=== PATIENT | male | born 1970 | race African-American/Black ===

== ENCOUNTER 2019-06-24 12:04 | Emergency (ER) | payer BC ==
--- NOTE | 2019-06-24 12:27 | ED ---
Headache - HPI Summary HPI Summary: This patient is a 49 year old F presenting to [facility] accompanied by with a chief complaint of MAYA with associated weakness since 06/21/19. Patient states that he went to [facility] in [place] where they preformed an EKG after reviewing the results he was recommended to come to the ED for a second EKG. The patient rates the pain 0/10 in severity. Symptoms aggravated by nothing. Symptoms alleviated by nothing. Patient reports MAYA, body aches, weakness, fluid in ears. Patient denies N/V/D, fever, diaphoresis, chills, nasal discharge, urinary symptoms and joint pain. Allergies Allergy/AdvReac Type Severity Reaction Status Date / Time ibuprofen Allergy Swelling Verified 06/24/19 12:12 Home Medications Medication Instructions Recorded Confirmed Type Acetaminophen TAB* [Tylenol TAB*] 975 mg PO Q6H PRN 06/24/19 06/24/19 History Cetirizine* [ZyrTEC 10 MG TAB*] 10 mg PO DAILY 06/24/19 06/24/19 History Ibuprofen TAB* [Advil TAB*] 200 mg PO Q6H PRN 06/24/19 06/24/19 History Pseudoephedrine TAB* [Sudafed TAB*] 30 mg PO Q6H PRN 06/24/19 06/24/19 History - History Of Current Complaint Chief Complaint: EDDysrhythmPalp Stated Complaint: ABNORMAL EKG Time Seen by Provider: 06/24/19 12:14 Hx Obtained From: Patient - , 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 Last Known Well Date: 06/20/19 Onset/Duration: Sudden Onset Initially Headache Was: Mild Currently Pain Is: Current Pain Scale(0-10)= - 0 Timing: Days - 06/21/19 Character: Pressure Location of Headache: Diffuse Aggravating Factor: Nothing Allevating Factors: Nothing Associated Signs And Symptoms: Other (Noted In Comments) - Allergies/Home Medications Allergies/Adverse Reactions: Allergies Allergy/AdvReac Type Severity Reaction Status Date / Time ibuprofen Allergy Swelling Verified 06/24/19 12:12 Home Medications: Home Medications Acetaminophen TAB* [Tylenol TAB*] 975 mg PO Q6H PRN 06/24/19 [History Confirmed 06/24/19] Cetirizine* [ZyrTEC 10 MG TAB*] 10 mg PO DAILY 06/24/19 [History Confirmed 06/24] Ibuprofen TAB* [Advil TAB*] 200 mg PO Q6H PRN 06/24/19 [History Confirmed ] Pseudoephedrine TAB* [Sudafed TAB*] 30 mg PO Q6H PRN 06/24/19 [History Confirmed 06/24/19] PMH/Surg Hx/FS Hx/Imm Hx Endocrine/Hematology History: Denies: Hx Diabetes Cardiovascular History: Denies: Hx Coronary Artery Disease, Hx Hypertension Sensory History: Denies: Hx Legally Blind, Hx Deafness Opthamlomology History: Denies: Hx Legally Blind EENT History: Denies: Hx Deafness Infectious Disease History: No Infectious Disease History: Denies: Traveled Outside the [place] in Last 30 Days - Family History Known Family History: Negative: Hypertension - Social History Hx Substance Use: Yes Substance Use Type: Reports: Marijuana Review of Systems Negative: Fever, Chills, Skin Diaphoresis Negative: Nasal Discharge Genitourinary: Negative Negative: Other - negative joint pain Positive: Headache All Other Systems Reviewed And Are Negative: Yes Physical Exam - Summary Physical Exam Summary: Constitutional: Well-developed, Well-nourished, Alert. (-) Distressed Skin: Warm, Dry HENT: Normocephalic; Atraumatic Eyes: Conjunctiva normal Neck: Musculoskeletal ROM normal neck. (-) JVD, (-) Stridor, (-) Tracheal deviation Cardio: Rhythm regular, rate normal, Heart sounds normal; Intact distal pulses; The pedal pulses are 2+ and symmetric. Radial pulses are 2+ and symmetric. (-) Murmur Pulmonary/Chest wall: Effort normal. (-) Respiratory distress, (-) Wheezes, (-) Rales Abd: Soft. (-) Tenderness, (-) Distension, (-) Guarding, (-) Rebound Musculoskeletal: (-) Edema Lymph: (-) Cervical adenopathy Neuro: Alert, Oriented x3, Strength normal, Cranial nerves II-XII are grossly intact. (-) Dysmetria, (-) Nystagmus, (-) Ataxia by finger to nose testing, (-) Sensory deficit. Psych: Mood and affect Normal Triage Information Reviewed: Yes Vital Signs On Initial Exam: Initial Vitals Temp Pulse Resp BP Pulse Ox 97.2 F 68 18 146/83 100 09/26/19 12:12 06/24/19 12:12 06/24/19 12:12 06/24/19 12:12 06/24/19 12:12 Vital Signs Reviewed: Yes Diagnostics - Vital Signs Vital Signs Temp Pulse Resp BP Pulse Ox 06/24/19 12:12 97.2 F 68 18 146/83 100 - Laboratory Result Diagrams: 06/24/19 12:29 06/24/19 12:29 Lab Statement: Any lab studies that have been ordered have been reviewed, and results considered in the medical decision making process. - CT Brain CT CT Interpretation Completed By: Radiologist Summary of CT Findings: Brain CT reveals, per radiologist, IMPRESSION: No evidence of intracranial mass or hemorrhage is noted. ED Physician has reviewed this report. - EKG 1207 Cardiac Rate: NL - 67 bpm EKG Rhythm: Sinus Rhythm ST Segment: Normal Ectopy: None EKG Comparison: Other - no prior comparison Summary of EKG Findings: EKG reveals SR and left ventricular hypertrophy. Re-Evaluation - Re-Evaluation First Eval Re-Evaluation Time: 16:00 Change: Improved Comment: Patient states that he has no complaints and blood pressure is normal. Headache Course/Dx - Course Course Of Treatment: This patient is a 49 year old F [facility] [place] by with a chief complaint of MAYA with associated weakness since 06/21/19. Brain CT reveals, per radiologist, IMPRESSION: No evidence of intracranial mass or hemorrhage is noted. ED Physician has reviewed this report. EKG reveals SR and left ventricular hypertrophy. Patient states that he ate a marijuana ediible friday night and patient states symptoms begane the next day. Test results with no significant abnormalities except for WBC 3.3. Patient will be discharged home and follow up with [facility]. Patient is agreeable with this plan. - Diagnoses Provider Diagnoses: Adverse effect of cannabis, Intermittent hypertension Discharge ED - Sign-Out/Discharge Documenting (check all that apply): Patient Departure - discharge Patient Received Moderate/Deep Sedation with Procedure: No - Discharge Plan Condition: Stable Disposition: HOME Patient Education Materials: Hypertension (ED) Referrals: Care [facility] [Outside] - 2 Days Additional Instructions: PLEASE FOLLOW UP WITH [facility] IN 2 TO 3 DAYS. PLEASE REMEMBER TO KEEP A LOG OF YOUR BLOOD PRESSURE AND BE SURE TO BRING THAT WITH YOU TO YOUR DOCTOR APPOINTMENT. PLEASE MAKE SURE YOU AVOID SUDAFED. PLEASE RETURN TO THE EMERGENCY DEPARTMENT FOR CHANGING OR WORSENING SYMPTOMS - Attestation Statements Document Initiated by Omaribe: Yes Documenting Scribe: Zulay Blanca Provider For Whom Flores is Documenting (Include Credential): Dr. Gamaliel Calvert MD Scribe Attestation: IZulay , scribed for Dr. Gamaliel Calvert MD on 06/24/19 at 1752. Status of Scribe Document: Ready
[2019-06-24 12:53] LABS: ABS Eosinophils 0.1 10^3/ul (0-0.6); ABS Lymphocytes 1.4 10^3/ul (1.0-4.8); ABS Monocytes 0.2 10^3/ul (0-0.8); ABS Neutrophils 1.6 10^3/ul (1.5-7.7); Eosinophil % 1.9 %; Hematocrit 43 % (42-52); Hemoglobin 14.5 g/dL (14.0-18.0); Lymphocyte % 42.3 %; Mean Corpuscular HGB Conc 34 g/dL (31-36); Mean Corpuscular Hemoglobin 30 pg (27-31); Mean Corpuscular Volume 90 fL (80-94); Mean Platelet Volume 8.3 fL (7.4-10.4); Nucleated Red Blood Cells % 0.1; Platelet Count 191 10^3/uL (150-450); Red Blood Count 4.77 10^6 /uL (4.18-5.48); Red Cell Distribution Width 13 % (10-15); White Blood Count 3.3 10^3/uL (3.5-10.8)
[2019-06-24 12:56] LABS: INR 1.02 (0.82-1.09)
[2019-06-24 13:12] LABS: Albumin 4.8 g/dL (3.2-5.2); Albumin/Globulin Ratio 1.7 (1-3); BUN/Creatinine Ratio 12.8 (8-20); Calcium 9.4 mg/dL (8.6-10.3); EGFR African American 86.6 (>60); EGFR Non-African American 71.6 (>60); Globulin 2.9 g/dL (2-4); Total Bilirubin 0.5 mg/dL (0.2-1.0); Total Protein 7.7 g/dL (6.4-8.9)
[2019-06-24 13:42] LABS: Magnesium 2.1 mg/dL (1.9-2.7)
[2019-06-24 13:48] LABS: C Reactive Protein < 1.00 mg/L (<8.01)
[2019-06-24 17:24] VITALS: BP 141/73
== END 2019-06-24 16:30 | disposition home or self-care (01) ==
LOC: ED 12:04
DX: I10 Essential (primary) hypertension (principal); T40.7X5A Adverse effect of cannabis (derivatives), initial encounter; Y92.9 Unspecified place or not applicable; Z79.899 Other long term (current) drug therapy; Z88.6 Allergy status to analgesic agent
CPT/HCPCS: 36415; 70450; 80053; 83605; 83735; 84439; 84443; 84484; 85025; 85610; 86140; 86618; 93005; 99282

== ENCOUNTER 2019-12-13 17:22 | Emergency (ER) | payer BC ==
--- OUTSIDE RECORDS SUMMARY | 2019-12-13 17:33 | XMS REPORT | Summary of Care ---
:1970 Author Organization [facility] Address [address] [address] Care Team Providers Name Role Phone Rossana Beard MD Primary Care Provider Reason for Visit Reason Comments Shoulder Pain Encounter Details Date Type Department Care Team Description 10/27/2019 Office Visit [facility] - Haley Aiken, PT Chronic right [place] [facility] [address] [facility] [address] (Primary Dx) [address] [place] [address] [address] [phone] [place] [phone] Allergies Active Allergy Reactions Severity Noted Date Comments Bee Sting Dermatologic Reaction High 01/13/2008 (HORNETS) Nsaids Swelling High 2009 Angioedema of lips documented as of this encounter (statuses as of 10/27/2019) Medications Medication Sig Dispensed Refills Start Date End Date Status cetirizine (ZYRTEC) 10 Take 1 Tab by 30 Tab 0 09/13/2013 Active MG Oral Tab mouth DAILY NEEDED. diphenhydrAMINE Take 1 Cap by 56 Cap 0 09/13/2013 Active (BENADRYL) 25 MG Oral mouth EVERY FOUR Cap HOURS NEEDED (allergies). fluticasone (FLONASE) [place] 2 Sprays in 1 Bottle 3 09/13/2013 Active 50 MCG/ACT Nasal nose DAILY SuspensionIndications: NEEDED. Allergic rhinitis EPINEPHrine (EPIPEN) 1 Syringe by 2 Device 0 01/18/2014 Active 0.3 MG/0.3ML Injection Injection route Device NEEDED (bee/hornet sting). amoxicillin-clavulanic Take 1 Tab by 20 Tab 0 10/14/2019 Active acid (AUGMENTIN 875 MG) mouth TWICE 875-125 MG Oral Tab DAILY. documented as of this encounter (statuses as of 10/27/2019) Active Problems Problem Noted Date Multiple nevi 09/13/2013 Overview: Brother, mother with same Bee sting-induced anaphylaxis 2009 Angioedema of lips 2009 ADVERSE REACTION TO NON-STEROIDAL ANTI-INFLAMMATORY DRUG (NSAID) 2009 documented as of this encounter (statuses as of 10/27/2019) Immunizations Name Administration Dates Next Due Influenza (IM) Preservative Free 06/10/2014 Influenza (IM) W/Pres 10/08/2019 TDAP Vaccine 02/11/2013 documented as of this encounter Social History Tobacco Use Types Packs/Day Years Used Date Never Smoker Smokeless Tobacco: Never Used Alcohol Use Drinks/Week oz/Week Comments Yes 7 Standard drinks or equivalent 7.0 limited Sex Assigned at Date Recorded Not on file Job Start Date Occupation Industry Not on file Not on file Not on file Travel History Travel Start Travel End No recent travel history available. documented as of this encounter Last Filed Vital Signs Not on filedocumented in this encounter Progress Notes Haley Aiken, PT - 10/27/2019 8:00 AM EST [facility] Initial Evaluation [facility] [address] [place] [id number] Patient: Ciaran Greene : 1970 Date of Service: 10/27/2019 Referring Physician: Avery Pool Primary Diagnosis: ICD-9-CM ICD-10-CM 1. Chronic right shoulder pain 719.41 M25.511 338.29 G89.29 Time In: 0800 Time Out: Subjective: He is a 49-y.o.-year-old male who presents for outpatient physical therapy with a chiefcomplaint of right shoulder pain that started 6-8 months ago. He believes it really started to get worse from starting a push-up challenge. Pain is improving. Pain went into the neck when bad and felt like neck took longer to go away. Hasnt done any working out in 2 weeks now. No prior shoulder injuries. Left hand dominant. 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 : No FOTO Data FOTO Intake Completed: Yes Intake FS Score: 74 Predicted FS Score: 77 Objective: Past Medical History: Diagnosis Date Bee sting reaction 2004 presumed allergy, epi pen PRN (never used) Mood disorder (HCC) mariaelena Nephrolithiasis 2011 Past Surgical History: Procedure Laterality Date DENTAL OPERATION NEC 1 wisdome tooth removed VASECTOMY Current Outpatient Medications: amoxicillin-clavulanic acid (AUGMENTIN 875 MG) 875-125 MG Oral Tab, Take 1 Tab by mouth TWICE DAILY., Disp: 20 Tab, Rfl: 0 cetirizine (ZYRTEC) 10 MG Oral Tab, Take 1 Tab by mouth DAILY NEEDED. , Disp: 30 Tab, Rfl:0 diphenhydrAMINE (BENADRYL) 25 MG Oral Cap, Take 1 Cap by mouth EVERY FOUR HOURS NEEDED (allergies)., Disp: 56 Cap, Rfl: 0 EPINEPHrine (EPIPEN) 0.3 MG/0.3ML Injection Device, 1 Syringe by Injection route NEEDED (bee/hornet sting)., Disp: 2 Device, Rfl: 0 fluticasone (FLONASE) 50 MCG/ACT Nasal Suspension, [place] 2 Sprays in nose DAILY NEEDED., Disp: 1 Bottle, Rfl: 3 Allergies Allergen Reactions Bee Sting Dermatologic Reaction (HORNETS) Nsaids Swelling Angioedema of lips Posture: Shoulders elevated bilaterally. Right scapula further from the spine Palpation: Trigger points in the upper traps, levator, posterior RTC and pecs AROM: Initial Eval Right Shoulder Left Shoulder Current Right Shoulder Left Shoulder Flexion 150 degrees 160 degrees Flexion degrees degrees Abduction WNL with painful arc degrees WNL degrees Abduction degrees degrees Ext. Rotation WNL degrees WNL degrees Ext. Rotation degrees degrees Int. Rotation ([place]) T7 T7 Int. Rotation ([place]) degrees degrees PROM: Initial Eval Right Shoulder Left Shoulder Current Right Shoulder Left Shoulder Flexion 160 degrees 160 degrees Flexion degrees degrees Abduction WNL degrees WNL degrees Abduction degrees degrees Ext. Rotation WNL degrees- pec stretch noted WNL degrees Ext Rotation degrees degrees Int. Rotation WNL WNL Int. Rotation Strength: Initial Eval Right Shoulder Left Shoulder Current Right Shoulder Left Shoulder Flexion 4+/5* 5/5 Flexion /5 /5 Abduction 4+*/5 5/5 Abduction /5 /5 Ext. Rotation 4-*/5 5/5 Ext. Rotation /5 Int. Rotation 5/5 5/5 Int. Rotation /5 /5 Bicep: 4+/5* Scaption: 4+/5* Joint Mobility Assessment: normal Special Tests: Seay Landon: Positive Emtpy Can: negative but compensates with UT Lift off: negative Cross over adduction: negative Drop Arm: negative Right cervical rotation limited Lateral flexion to left, stretch felt on the right Plan of Care Plan of Care Start Date: 10/27/19 Plan of Care Expiration Date: 01/26/20 Prior Function Comment: independent Current Function Comment: unable to work out, modifies sleeping, lifting, reaching Rehabilitative Prognosis: Good Planned Intervention(s): PT Eval Low Complexity (90326);Therapeutic Exercise ( Timed) (46515);Ultrasound (Timed) (73015);Manual Therapy (Timed) (07055);Moist Hot Pack (65008);Cold Pack (46855) Frequency of Treatments: 1 time weekly Duration of Treatments: 3 months History Components: Moderate (1-2 personal factors and/or comorbidities) Examination of Body Systems/Components: Low (Addressing 1-2 elements) Clinical Presentation: Stable - unchanging or predictable (Low) Clinical Decision Making (complexity): Low Treatment Number: 1 Total Time of Evaluation: 25 Outcome Tools Used: FOTO Assessment: Patient presents with right shoulder pain that is worse with working out and sleeping on the right side. Displays excessive upper trap activation with scap retraction and pec tightness noted bilaterally. Positive painful arc with abduction range and weakness in ER and shoulder elevation. Findings suggest bicep and RTC impingement. Would benefit from therapy to improve scapular dyskinesia, posture, RTC and scapular stabilizer strength, pec and UT length to tolerate all ADL's including sleeping and overhead activity. Was Physical Therapy treatment performed at this visit? Yes: Interventions: FOTO Data FOTO Intake Completed: Yes Intake FS Score: 74 Predicted FS Score: 77 Therapeutic Exercises (32298) Patient Education/Home Exercise Program: HEP given Number of Exercises?: 5 Total Minutes (all Therapeutic Exercise): 25 Exercise #1 Exercise Name: rows Reason for Exercise: Strengthening Location/Body Area: Shoulder Sets/Reps: 10 Resistance: green Exercise #2 Exercise Name: ER Reason for Exercise: Strengthening Location/Body Area: Shoulder Sets/Reps: 10 Resistance: red Exercise #3 Exercise Name: foam roller Reason for Exercise: Flexibility Location/Body Area: Shoulder Sets/Reps: 5 minutes Exercise #4 Exercise Name: UT and levator stretch Reason for Exercise: Flexibility Location/Body Area: Shoulder;Cervical Spine Sets/Reps: 3x30 seconds Exercise #5 Exercise Name: prone i Reason for Exercise: Strengthening Location/Body Area: Shoulder Sets/Reps: 10 Plan for Next Visit: Continue per POC. DTM to RTC and pecs. Add chest, serratus push up, serratus wall slide, if no increase in symptoms Evaluation Complexity Assessment: History Components: Moderate (1-2 personal factors and/or comorbidities) Examination of Body Systems/Components: Low (Addressing 1-2 elements) Clinical Presentation: Stable - unchanging or predictable (Low) Clinical Decision Making (complexity): Low Treatment Number: 1 Total Time of Evaluation: 25 Total Number of Timed Code Treatment Minutes: 25 Author: Haley Aiken PT 10/27/2019 09:46 documented in this encounter Plan of Treatment Date Type Specialty Care Team Description 11/10/2019 Office Visit Physical Therapy Haley Aiken, PT [address] [place] [address] [phone] 11/24/2019 Office Visit Physical Therapy Haley Aiken, PT [address] [place] [address] [phone] Health Maintenance Due Date Last Done Comments Colonoscopy 2019 ZOSTER IMMUNIZATION SERIES 2019 (1 of 2) DIABETES SCREENING 01/14/2020 01/13/2019, 01/15/2017, 02/11/2013 DEPRESSION SCREENING 10/14/2020 10/14/2019 DTaP/Tdap/Td Vaccines (2 - 02/11/2023 02/11/2013 Tdap) LIPID DISORDER SCREENING 01/14/2024 01/13/2019, 01/15/2017, 02/11/2013, Additional history exists INFLUENZA VACCINE Completed 10/08/2019, 06/10/2014 HEPATITIS A IMMUNIZATION Aged Out No longer eligible SERIES based on patient's age to complete this topic HPV IMMUNIZATION SERIES Aged Out No longer eligible based on patient's age to complete this topic MENINGOCOCCAL VACCINE IMM Aged Out No longer eligible based on patient's age to complete this topic PNEUMOCOCCAL 0-64 YRS Aged Out No longer eligible based on patient's age to complete this topic documented as of this encounter Results Not on filedocumented in this encounter Visit Diagnoses Diagnosis Chronic right shoulder pain Pain in joint, shoulder region documented in this encounter Insurance Payer Benefit Plan / Subscriber ID Effective Dates Phone Address Type Group [employer] xxxxxxxxxxxx 2014-Present [employer] (Home) [facility] [phone] [place], [place] (Work) [phone] documented as of this encounter
--- OUTSIDE RECORDS SUMMARY | 2019-12-13 17:33 | XMS REPORT | Summary of Care ---
:1970 Author Organization [facility] Address [address] [address] Care Team Providers Name Role Phone Rossana Beard MD Primary Care Provider Reason for Visit Reason Comments Shoulder Pain Encounter Details Date Type Department Care Team Description 11/10/2019 Office Visit [facility] - Haley Aiken, PT Chronic right [place] Physical [address] [facility] [address] (Primary Dx) [address] [place] [address] [address] [phone] [place] [phone] Allergies Active Allergy Reactions Severity Noted Date Comments Bee Sting Dermatologic Reaction High 01/13/2008 (HORNETS) Nsaids Swelling High 2009 Angioedema of lips documented as of this encounter (statuses as of 11/10/2019) Medications Medication Sig Dispensed Refills Start Date End Date Status cetirizine (ZYRTEC) 10 Take 1 Tab by 30 Tab 0 09/13/2013 Active MG Oral Tab mouth DAILY NEEDED. diphenhydrAMINE Take 1 Cap by 56 Cap 0 09/13/2013 Active (BENADRYL) 25 MG Oral mouth EVERY FOUR Cap HOURS NEEDED (allergies). fluticasone (FLONASE) [place] 2 Sprays in 1 Bottle 3 09/13/2013 [...] as of this encounter (statuses as of 11/10/2019) Active Problems Problem Noted Date Multiple nevi 09/13/2013 Overview: Brother, mother with same Bee sting-induced anaphylaxis 2009 Angioedema of lips 2009 ADVERSE REACTION TO NON-STEROIDAL ANTI-INFLAMMATORY DRUG (NSAID) 2009 documented as of this encounter (statuses as of 11/10/2019) Immunizations Name Administration Dates Next Due Influenza (IM) Preservative Free 06/10/2014 Influenza (IM) W/Pres 10/08/2019 TDAP Vaccine 02/11/2013 documented as of this encounter Social History Tobacco Use Types Packs/Day Years Used Date Never Smoker Smokeless Tobacco: Never Used Alcohol Use Drinks/Week oz/Week Comments Yes 7 Standard drinks or equivalent 7.0 limited Sex Assigned at Date Recorded Not on file documented as of this encounter Last Filed Vital Signs Not on filedocumented in this encounter Progress Notes Haley Aiken, PT - 11/10/2019 9:00 AM EST [facility] Treatment Note Outpatient Physical Therapy Services [facility] [address] [place] [phone] Treatment Number: 2 Referring Physician: Monalisa Rizo Primary Diagnosis: ICD-9-CM ICD-10-CM 1. Chronic right shoulder pain 719.41 M25.511 338.29 G89.29 Plan of Care Expiration Date: Time In: 904 Time Out: 929 Total Session Minutes: 25 Pain at Start of Care: 10/08 Pain at End of Care: 10/08 Subjective Comments: Does not notice too much change in pain at the right shoulder. Hurts after foam roller and sometimes during external rotation. Had to do a lot of snow blowing and shoveling and noticed an increase in symptoms. Interventions: Therapeutic Exercises (90831) Patient Education/Home Exercise Program: Reviewed exercises to avoid Number of Exercises?: 6 Total Minutes (all Therapeutic Exercise): 15 Exercise #3 Exercise Name: foam roller Reason for Exercise: Flexibility Location/Body Area: Shoulder Sets/Reps: 5 minutes Exercise #5 Exercise Name: prone i Reason for Exercise: Strengthening Location/Body Area: Shoulder Sets/Reps: 10 Exercise #6 Exercise Name: serratus wall slide- no band Reason for Exercise: Joint Mobility;Muscle Performance Location/Body Area: Shoulder Sets/Reps: 10 Manual Therapy (44424) Soft Tissue Mobilization: Manual Tissue Mobilization Soft Tissue Mobilization Details: DTM to RTC, scap stabilizers and pecs Total Minutes (All Manual Therapy): 10 Scapular dyskinesia with excessive anterior tilt Assessment: Patient demonstrates excellent recall of HEP. Requires cueing for excessive upper trap activation with scapular retraction and arm elevation. Patient also reports ongoing difficulty in lifting, reaching, pushing, pulling. Skilled Physical Therapy services are required to address ongoingfunctional and objective limitations/impairments including decreased shoulder AROM, decreased RTC and scapular stabilizer strength, scapular dyskinesia, pectoralis tightness. Plan for Next Visit: Continue per POC. Assess ROM. Thoracic mobility on foam roller, cat and camel Total UNTIMED Code Treatment Minutes: Total TIMED Code Treatment Minutes: 25 Total Treatment Minutes: 25 Re- Eval: Insurance/Visits: Author: Haley Aiken, PT 11/10/2019 10:08 documented in this encounter Plan of Treatment Date Type Specialty Care Team Description 11/24/2019 Office Visit Physical Therapy Haley Aiken, PT [address] [place] [address] [phone] Health Maintenance Due Date Last Done Comments [...] ID Effective Dates Phone Address Type Group [employer] [id number] 2014-Present [employer] Guarant[employer] Name Account Type Relation to Date of Phone Billing Patient Address Armando Greene Personal/Family 1970 [address] [facility] (Home) [facility] [phone] [place], [place] (Work) [phone] documented as of this encounter
--- OUTSIDE RECORDS SUMMARY | 2019-12-13 17:33 | XMS REPORT | Summary of Care ---
:1970 Author Organization [facility] Address [address] [address] Care Team Providers Name Role Phone Rossana Beard MD Primary Care Provider Reason for Visit Reason Comments Shoulder Pain Encounter Details Date Type Department Care Team Description 12/01/2019 Office Visit [facility] - Haley Aiken, PT Chronic right [facility] [address] [facility] [address] (Primary Dx) [address] [place] [address] [address] [phone] [place] [id number] [phone] Allergies Active Allergy Reactions Severity Noted Date Comments Bee Sting Dermatologic Reaction High 01/13/2008 (HORNETS) Nsaids Swelling High 2009 Angioedema of lips documented as of this encounter (statuses as of 12/01/2019) Medications Medication Sig Dispensed Refills Start Date End Date Status cetirizine (ZYRTEC) 10 Take 1 Tab by 30 Tab 0 09/13/2013 Active MG Oral Tab mouth DAILY NEEDED. diphenhydrAMINE Take 1 Cap by 56 Cap 0 09/13/2013 Active (BENADRYL) 25 MG Oral mouth EVERY FOUR Cap HOURS NEEDED (allergies). fluticasone (FLONASE) Raymond 2 Sprays in 1 Bottle 3 09/13/2013 [...] as of this encounter (statuses as of 12/01/2019) Active Problems Problem Noted Date Multiple nevi 09/13/2013 Overview: Brother, mother with same Bee sting-induced anaphylaxis 2009 Angioedema of lips 2009 ADVERSE REACTION TO NON-STEROIDAL ANTI-INFLAMMATORY DRUG (NSAID) 2009 documented as of this encounter (statuses as of 12/01/2019) Immunizations Name Administration Dates Next Due Influenza [...] encounter Progress Notes Haley Aiken, PT - 12/01/2019 8:30 AM EST [facility] Treatment Note Outpatient Physical Therapy Services [facility] [address] [place] [phone] Treatment Number: 3 Referring Physician: Monalisa Rizo Primary Diagnosis: ICD-9-CM ICD-10-CM 1. Chronic right shoulder pain 719.41 M25.511 338.29 G89.29 Plan of Care Expiration Date: Time In: 834 Time Out: 904 Total Session Minutes: 30 Pain at Start of Care: 10/08 Pain at End of Care: 10/08 Subjective Comments: Is sore after band external rotation for the rest of the day. Nothing sharp just nagging. Has not done push-ups in a month. Is only doing light lifting. Neck feels better but theshoulder does not seem much different. Interventions: Therapeutic Exercises (96257) Number of Exercises?: 7 Total Minutes (all Therapeutic Exercise): 25 Exercise #1 Exercise Name: serratus push up Reason for Exercise: Strengthening Location/Body Area: Shoulder Sets/Reps: 10 Exercise #2 Exercise Name: ER Reason for Exercise: Strengthening Location/Body Area: Shoulder Sets/Reps: 10 Resistance: 3# Exercise #3 Exercise Name: foam roller Reason for Exercise: Flexibility Location/Body Area: Shoulder Sets/Reps: 5 minutes Details: pec stretch and thoracic mob Exercise #6 Exercise Name: serratus wall slide- no band Reason for Exercise: Joint Mobility;Muscle Performance Location/Body Area: Shoulder Sets/Reps: 10 Exercise #7 Exercise Name: ER at 90 degrees abduction Reason for Exercise: Strengthening Location/Body Area: Shoulder Sets/Reps: 10 Resistance: peach Manual Therapy (12648) Soft Tissue Mobilization: Manual Tissue Mobilization Soft Tissue Mobilization Details: DTM to RTC, scap stabilizers and pecs Total Minutes (All Manual Therapy): 5 Trigger points in the right infraspinatus region Assessment: Patient demonstrates excellent recall of HEP with improved pec and UT length. ER remains weak and range limited. Full apleys ER/IR with some pain during IR. Patient also reports ongoing difficulty in working out, lifting repetitive, sleeping on the right side. Skilled Physical Therapy services are required to address ongoing functional and objective limitations/impairments including decreased external rotation and supraspinatus strength, decreased ER range of motion, scapular dyskinesia, pain/inflammation. Plan for Next Visit: Continue per POC. Asses ROM and strength. Total UNTIMED Code Treatment Minutes: Total TIMED Code Treatment Minutes: 30 Total Treatment Minutes: 30 Re- Eval: Insurance/Visits: Author: Haley Aiken, PT 12/01/2019 11:15 documented in this encounter Plan of Treatment Date Type Specialty Care Team Description 12/15/2019 Office Visit Physical Therapy Haley Aiken, PT [address] [place] [address] [phone] Health Maintenance Due Date Last Done Comments [...] ID Effective Dates Phone Address Type Group [employer] [id number] 2014-Present [employer] Name Account Type Relation to Date of Phone Billing Patient Address Armando Greene Personal/Family 1970 [address] (Home) [address] [phone] [place], [place] (Work) [id number] documented as of this encounter
--- NOTE | 2019-12-13 17:50 | ED ---
HPI Cardiac - HPI Summary HPI Summary: 49 year old M presenting to [facility] with a chief complaint of palpitations, lightheadedness, tingling, chills, clamminess, and feeling lethargic since 14: 00 today. The patient rates the pain 0/10 in severity. Symptoms aggravated by nothing. Symptoms alleviated by nothing. Patient reports that his blood pressure was 166/80 when he checked it. He denies any cough, shortness of breath , nausea, or diaphoresis. Medication list reviewed. Allergy list reviewed. - History of Current Complaint Chief Complaint: EDDysrhythmPalp Stated Complaint: HEART PALPITATIONS PER EMS Hx Obtained From: Patient Onset/Duration: Started Hours Ago Timing: Constant Current Severity: None Pain Intensity: 0 Pain Scale Used: 0-10 Numeric Aggravating Factor(s): Nothing Alleviating Factor(s): Nothing Associated Signs and Symptoms: Positive: Tingling, Chills, Lightheadedness, Other: - Clamminess; lethargic. Negative: Shortness of Breath, Diaphoresis, Nausea, Cough - Allergy/Home Medications Allergies/Adverse Reactions: Allergies Allergy/AdvReac Type Severity Reaction Status Date / Time ibuprofen Allergy Swelling Verified 12/13/19 17:34 Home Medications: Home Medications Acetaminophen TAB* [Tylenol TAB*] 975 mg PO Q6H PRN 06/24/19 [History Confirmed 12/13/19] Valerian Root 1 gm PO DAILY 12/13/19 [History Confirmed 12/13/19] PMH/Surg Hx/FS Hx/Imm Hx Endocrine/Hematology History: Denies: Hx Diabetes Cardiovascular History: Denies: Hx Coronary Artery Disease, Hx Hypertension Sensory History: Denies: Hx Legally Blind, Hx Deafness Opthamlomology History: Denies: Hx Legally Blind - Surgical History Surgery Procedure, Year, and Place: vasectomy Infectious Disease History: No Infectious Disease History: Denies: Traveled Outside the [place] in Last 30 Days - Family History Known Family History: Negative: Hypertension - Social History Alcohol Use: Daily Alcohol Amount: 2 drinks Hx Substance Use: Yes Substance Use Type: Reports: Marijuana Smoking Status (MU): Never Smoked Tobacco Review of Systems Positive: Chills, Other - Clamminess; lethargic. Negative: Skin Diaphoresis Positive: Palpitations Negative: Shortness Of Breath, Cough Negative: Nausea Neurological/Mental Status: Other - Lightheadedness Positive: Paresthesia All Other Systems Reviewed And Are Negative: Yes Physical Exam - Summary Physical Exam Summary: Appearance: The patient is well-nourished in no acute distress and in no acute pain. Skin: The skin is warm and dry, and skin color reflects adequate perfusion. HEENT: The head is normocephalic and atraumatic. The pupils are equal and reactive. The conjunctivae are clear and without drainage. Nares are patent and without drainage. Mouth reveals moist mucous membranes, and the throat is without erythema and exudate. The external ears are intact. The ear canals are patent and without drainage. The tympanic membranes are intact. Neck: The neck is supple with full range of motion and non-tender. There are no carotid bruits. There is no neck vein distension. Respiratory: Chest is non-tender. Lungs are clear to auscultation and breath sounds are symmetrical and equal. Cardiovascular: Heart is regular rate and rhythm. There is no murmur or rub auscultated. There is no peripheral edema and pulses are symmetrical and equal. Abdomen: The abdomen is soft and non-tender. There are normal bowel sounds heard in all four quadrants and there is no organomegaly palpated. Musculoskeletal: There is no back tenderness noted. Extremities are non-tender with full range of motion. There is good capillary refill. There is no peripheral edema or calf tenderness elicited. Neurological: Patient is alert and oriented to person, place and time. The patient has symmetrical motor strength in all four extremities. Cranial nerves are grossly intact. Deep tendon reflexes are symmetrical and equal in all four extremities. Psychiatric: The patient has an appropriate affect and does not exhibit any anxiety or depression. Triage Information Reviewed: Yes Vital Signs On Initial Exam: Initial Vitals Temp Pulse Resp BP Pulse Ox 98.6 F 82 19 174/101 99 12/13/19 17:26 12/13/19 17:26 12/13/19 17:26 12/13/19 17:26 12/13/19 17:26 Vital Signs Reviewed: Yes Procedures - Sedation Patient Received Moderate/Deep Sedation with Procedure: No Diagnostics - Vital Signs Vital Signs Temp Pulse Resp BP Pulse Ox 12/13/19 17:26 98.6 F 82 19 174/101 99 - Laboratory Result Diagrams: 12/13/19 18:06 12/13/19 18:06 Lab Statement: Any lab studies that have been ordered have been reviewed, and results considered in the medical decision making process. - Radiology Chest x-ray Radiology Interpretation Completed By: ED Physician Summary of Radiographic Findings: No acute process. ED physician has reviewed and interpreted this report. - EKG 17:41 Cardiac Rate: NL - 77 BPM EKG Rhythm: Sinus Rhythm Summary of EKG Findings: ED physician has reviewed and interpreted this EKG. Disposition - Course Course Of Treatment: Mr. Greene presented with palpitations and chest tightness. He was kept on a monitor and was nontoxic in appearance with stable vitals. EKG was unremarkable as was chest x-ray and labs including a delayed troponin. His heart score is 1. I recommended he follow up with his PCP to track his blood pressures as he was a bit hypertensive. - Diagnoses Provider Diagnoses: Palpitations Discharge ED - Sign-Out/Discharge Documenting (check all that apply): Patient Departure - Discharge Plan Condition: Stable Disposition: HOME Patient Education Materials: Heart Palpitations (ED) Referrals: [facility] [Outside] - 3 Days Additional Instructions: Follow-up with your PCP in 2-3 days. Return to the emergency department for changing or worsening symptoms. - Billing Disposition and Condition Condition: STABLE Disposition: Home - Attestation Statements Document Initiated by Scribe: Yes Documenting Scribe: Heather Serrano Provider For Whom Omaribleelee is Documenting (Include Credential): Chato Cadet MD Scribe Attestation: Heather Salgado, scribed for Chato Cadet MD on 12/13/19 at 2143. Scribe Documentation Reviewed: Yes Provider Attestation: The documentation as recorded by the Heather velasco accurately reflects the service I personally performed and the decisions made by me, Chato Cadet MD Status of Scribe Document: Viewed
[2019-12-13 18:26] LABS: ABS Lymphocytes 1.3 10^3/ul (1.0-4.8); ABS Monocytes 0.2 10^3/ul (0-0.8); ABS Neutrophils 2.9 10^3/ul (1.5-7.7); Eosinophil % 1.1 %; Hematocrit 41 % (42-52); Hemoglobin 13.9 g/dL (14.0-18.0); Lymphocyte % 28.2 %; Mean Corpuscular HGB Conc 34 g/dL (31-36); Mean Corpuscular Hemoglobin 30 pg (27-31); Mean Corpuscular Volume 88 fL (80-94); Mean Platelet Volume 8.5 fL (7.4-10.4); Nucleated Red Blood Cells % 0.1; Platelet Count 181 10^3/uL (150-450); Red Blood Count 4.65 10^6 /uL (4.18-5.48); Red Cell Distribution Width 13 % (10-15); White Blood Count 4.5 10^3/uL (3.5-10.8)
[2019-12-13 18:34] LABS: INR 1.1 (0.82-1.09)
[2019-12-13 18:38] LABS: Albumin 4.4 g/dL (3.2-5.2); Albumin/Globulin Ratio 1.5 (1-3); BUN/Creatinine Ratio 9.4 (8-20); Calcium 9.5 mg/dL (8.6-10.3); EGFR African American 100.3 (>60); EGFR Non-African American 82.9 (>60); Globulin 2.9 g/dL (2-4); Potassium 3.5 mmol/L (3.5-5.0); Total Bilirubin 0.8 mg/dL (0.2-1.0); Total Protein 7.3 g/dL (6.4-8.9)
[2019-12-13 18:52] LABS: TSH (Thyroid Stimulating Horm) 0.58 mcIU/mL (0.34-5.60)
[2019-12-13 21:40] VITALS: BP 143/80
== END 2019-12-13 21:54 | disposition home or self-care (01) ==
LOC: ED 17:22
DX: R00.2 Palpitations (principal); R42 Dizziness and giddiness; Z88.6 Allergy status to analgesic agent
CPT/HCPCS: 36415; 71045; 80053; 83605; 83735; 84443; 84484; 85025; 85610; 99284